=== PATIENT | female | born 1995 | race Caucasian/White ===

== ENCOUNTER → 2022-07-03 | Outpatient (CLI) | payer OTHER ==
--- NOTE | 2022-07-03 11:46 | US ---
EXAMINATION TYPE: Transabdominal DATE OF EXAM: 07/03/2022 9:33 AM COMPARISON: NONE CLINICAL HISTORY: Z36.89 Encounter for other specified . Confirm dates EXAM PERFORMED: Transabdominal (TA) EXAM MEASUREMENTS: GESTATIONAL AGE / DATING Physician Established: (13 weeks/0 days) EDC: 01/08/2023 Dates by LMP: LMP unknown Dates by First Scan: No previous this is first scan Dates by Current Scan for: (12 weeks/1 days) EDC: 01/14/2023 MATERNAL ANATOMY Uterus: 17.4 x 6.1 x 10.4cm Right Ovary: not seen Left Ovary: not seen Post CDS / Adnexa: wnl Presence of free fluid: no Presence of corpus luteal cyst: not seen Presence of subchorionic bleed: no GESTATION / SURVEY CRL: 5.5cm (12 weeks/1 days) Yolk Sac (normal less than 6mm): 4.5mm Heart Rate: 154 bpm Rhythm: Normal IUP: Viable IUP Date of LMP: Unknown IMPRESSION: Viable single intrauterine with ultrasound age of 12 weeks 1 day by crown-rump length.
== END | disposition home or self-care (01) ==
LOC: RADUSWWP 09:06
PROVIDERS: ATTEND Obstetrics & Gynecology
DX: Z36.89 Encounter for other specified antenatal screening (principal); Z3A.12 12 weeks gestation of pregnancy
CPT/HCPCS: 76801

== ENCOUNTER → 2022-10-16 | Outpatient (CLI) | payer OTHER ==
[2022-10-16 17:46] LABS: HCT 32.2 % (37.2-46.3); MCH 31.5 pg (27.0-32.0); MCHC 34.2 g/dL (32.0-37.0); MCV 92.3 fL (80.0-97.0); Mean Platelet Volume 9.8 fL (9.5-12.2); NRBC Per 100 WBC 0 /100 WBCS (0.0-0.0); Platelet Count 165 X 10*3/uL (140-440); RBC 3.49 X 10*6/uL (4.10-5.20); WBC 8.08 X 10*3/uL (4.50-10.00)
== END | disposition home or self-care (01) ==
LOC: LABWHC1 10:06
PROVIDERS: ATTEND Obstetrics & Gynecology
DX: Z34.82 Encounter for supervision of other normal pregnancy, second trimester (principal); Z3A.00 Weeks of gestation of pregnancy not specified
CPT/HCPCS: 36415; 82950; 85027

== ENCOUNTER 2023-01-02 11:56 | Inpatient (IN) | payer OTHER ==
[2023-01-02] MEDS ORDERED: CITRIC ACID-SODIUM CITRATE 15 ML CUP PO ONE (12:35)
[2023-01-02] MEDS ORDERED: LACTATED RINGERS 1,000 ML IV ONE (12:35)
--- NOTE | 2023-01-02 12:43 | P.HPOB ---
History of Present Illness H&P Date: 01/02/23 Chief Complaint: Contractions, previous This patient is a pleasant 27-year-old 5 para 2 female estimated date of confinement 01/14/2023 estimated gestational age 38-2/7 weeks who presents to labor and delivery with complaints of increased contractions. Patient's care has been uncomplicated. She's had 2 previous sections and scheduled for repeat next week. Patient's having contractions yesterday may become much more painful today. Patient's felt to be in early labor. Review of Systems Genitourinary: Reports Menstruation: Reports amenorrhea Past Medical History Past Medical History: No Reported History History of Any Multi-Drug Resistant Organisms: None Reported Past Surgical History: Section Past Anesthesia/Blood Transfusion Reactions: No Reported Reaction Past Psychological History: No Psychological Hx Reported Smoking Status: Former smoker Past Alcohol Use History: None Reported, Occasional Past Drug Use History: None Reported Medications and Allergies Home Medications Medication Instructions Recorded Confirmed Type No Known Home Medications 01/23/15 01/23/15 History Allergies Allergy/AdvReac Type Severity Reaction Status Date / Time No Known Allergies Allergy Verified 01/23/15 16:40 Exam - OBG Physical Exam Abdomen: bowel sounds normal, no diffuse tenderness, no bruit present, no guarding noted, no hepatomegaly, no splenomegaly, no mass Vulva: both: normal Vagina: normal moisture, no discharge Cervix: no lesion (Cervix is closed), no discharge Results labs show she is A positive, rubella immune, RPR nonreactive, hepatitis B and C are negative, HIV is nonreactive, ultrasounds of shown normal anatomy. Group B strep was negative. Glucola was 95. Assessment and Plan Assessment: This is a pleasant 27-year-old 5 para 2 female estimated gestational age 38-2/7 weeks who presents to labor and delivery complaints of regular painful contractions found to be in early labor. Patient's had 2 previous sections. Patient did eat a peanut butter sandwich approximately 2 hours ago. heart tones are category 1. Plan at this time is to proceed with a section later today after her food has digested, unless there are heart tone abnormalities then we will proceed with delivery immediately. Patient I discussed the surgery and risks and risks of infection, bleeding, possible injury to bowel, bladder, vessels, and/or other organs. All the patient's questions are answered and a written consent is obtained. (1) 38 weeks gestation of Current Visit: Yes Status: Acute Code(s): Z3A.38 - 38 WEEKS GESTATION OF SNOMED Code(s): 46616072 (2) Previous delivery affecting Current Visit: Yes Status: Acute Code(s): O34.219 - MATERNAL CARE FOR UNSP TYPE SCAR FROM PREVIOUS DEL SNOMED Code(s): 204220265 (3) Normal labor Current Visit: Yes Status: Acute Code(s): O80 - ENCOUNTER FOR FULL-TERM UNCOMPLICATED DELIVERY; Z37.9 - OUTCOME OF DELIVERY, UNSPECIFIED SNOMED Code(s): 85170882
[2023-01-02] MEDS ORDERED: BUTORPHANOL 1 MG/ML 1 ML VIAL IV PRN (12:44)
[2023-01-02 14:57] LABS: Basophils % (A) 0 %; Eosinophils % (A) 0 %; HCT 33.7 % (34.0-46.0); HGB 11.5 gm/dL (11.4-16.0); Lymphocytes # (A) 1.6 k/uL (1.0-4.8); Lymphocytes % (A) 16 %; MCH 31.2 pg (25.0-35.0); MCHC 34.2 g/dL (31.0-37.0); MCV 91.4 fL (80.0-100.0); Monocytes # (A) 0.4 k/uL (0-1.0); Monocytes % (A) 4 %; Neutrophils # (A) 7.6 k/uL (1.3-7.7); Neutrophils % (A) 78 %; Platelet Count 143 k/uL (150-450); Poikilocytosis Slight; RBC 3.69 m/uL (3.80-5.40); WBC 9.8 k/uL (3.8-10.6)
[2023-01-02] MEDS ORDERED: METOCLOPRAMIDE 5 MG/ML 2 ML VIAL ONE (17:50)
[2023-01-02] MEDS ORDERED: ONDANSETRON 4 MG/2 ML VIAL ONE (17:50)
[2023-01-02] MEDS ORDERED: NALBUPHINE 10 MG/ML (1 ML AMP) ONE (17:50)
[2023-01-02] MEDS ORDERED: MORPHINE SULFATE (PF) 0.3 MG/0.3 ML SYR ONE (17:50)
[2023-01-02] MEDS ORDERED: KETOROLAC 15 MG/ML 1 ML VIAL ONE (17:50)
[2023-01-02] MEDS ORDERED: ePHEDrine 50 MG/ML 1 ML VIAL ONE (17:50)
[2023-01-02] MEDS ORDERED: OXYTOCIN 30 UNITS/500 ML NS BAG IV ONE (17:50)
[2023-01-02] MEDS ORDERED: ZOLPIDEM 5 MG TAB PO PRN (18:38)
[2023-01-02] MEDS ORDERED: ONDANSETRON 4 MG/2 ML VIAL IVP PRN (18:38)
[2023-01-02] MEDS ORDERED: NALOXONE 0.4 MG/ML 1 ML VIAL IV PRN ×2 (18:38→20:13)
[2023-01-02] MEDS ORDERED: LANOLIN CREAM 5 GM TUBE TOPICAL PRN (18:38)
[2023-01-02] MEDS ORDERED: diphenhydrAMINE 25 MG CAP PO PRN (18:38)
[2023-01-02] MEDS ORDERED: diphenhydrAMINE 50 MG/ML 1 ML VIAL IVP PRN (18:38)
[2023-01-02] MEDS ORDERED: OXYTOCIN 30 UNITS/500 ML NS 30 UNIT in SALINE 1 500ML.BAG IV SCH (18:45)
--- NOTE | 2023-01-02 18:50 | P.OP ---
Date of Procedure: 01/02/23 Preoperative Diagnosis: #1: 38-2/7 week intrauterine . #2: Previous section 2. #3: Early labor. Postoperative Diagnosis: Same Procedure(s) Performed: Repeat low transverse section Anesthesia: spinal Surgeon: Nba Dodge Whiskey Filterer #1: Emilia Holguin Estimated Blood Loss (ml): 400 Pathology: none sent Condition: stable Disposition: floor Indications for Procedure: Please see dictated H&P for intimate details of this patient's admission. In brief summary this is a pleasant 27-year-old 5 para 2 female estimated gestational age 38-2/7 weeks who presents to labor and delivery with complaints of painful contractions is started yesterday become more painful throughout the day. Patient was not dilated was found having regular painful contractions requiring IV pain medications therefore thought to be in active labor. Patient's had a previous section 2 and request repeat. Patient does understand the surgery and risks and risks of infection, bleeding, possible injury bowel, bladder, vessels, and/or other organs. All the patient's questions are answered and a written consent is obtained. Operative Findings: This was a vigorous viable female infant Apgars 9 and 9 delivery time is 1809 hrs. The patient's uterus tubes and ovaries appear grossly normal. Description of Procedure: This patient has a Cowart catheter placed to straight drain. She is subsequently taken to the operating room where she sat up and spinal anesthetic is administered without incident. With an adequate level of anesthesia she has abdominal prep and drape. Scalpels and taken the previous Pfannenstiel incision is incised. A second scalpel is taken down the fascia the fascia scored with a knife. Fascial incision extended bilaterally using the Resendiz scissors. Fascia is then dissected off the rectus muscles sharply. Rectus muscles are and the peritoneum was identified and entered sharply. Peritoneal incision extended superior and inferior without difficulty. Bladder blade is then placed. Bladder peritoneum was taken sharply off the lower uterine segment. Scalpels and taken and a low transverse uterine incision is made. Using a hemostat I into the uterine cavity bluntly and there is loss of clear fluid. This incision is then extended bluntly. 's head is then guided through the incision with fundal pressure delivered. Mouth and nares are bulb suctioned. There is no evidence of nuchal cord. With more fundal pressure with delivery the rest of this 's body. This is a vigorous viable female Apgars are 9 and 9 delivery time is 1809 hrs. After delivery of the the umbilical cord is doubly clamped and cut and appears to be trivascular. The placenta is then manually extracted intact. Uterus is then externalized uterine incision demarcated with Price clamps. Uterine incision is then closed using 0 Vicryl running fashion 2 layers. Excellent hemostasis is noted excess fluid is removed from the abdomen and pelvis. Uterus is placed back into the abdomen. The parietal peritoneum was then closed using 0 Vicryl running fashion. Rectus muscles reapproximated in 0 Vicryl interrupted fashion. Fascial incision is then intact and hemostatic. Skin is and closed using larisa. All counts are correct 3. There are no complications. Infant and mother are taken to the birthing suite in satisfactory condition.
[2023-01-02] MEDS: LACTATED RINGERS 1,000 ML IV SCH ×3 (20:00→20:32)
[2023-01-02] MEDS: SENNOSIDES-DOCUSATE SODIUM 1 EACH TAB PO SCH (20:01)
[2023-01-02] MEDS ORDERED: MORPHINE SULFATE 2 MG/ML SYRINGE IVP PRN (20:13)
[2023-01-02] MEDS: METOCLOPRAMIDE 5 MG/ML 2 ML VIAL IVP PRN (20:31)
[2023-01-02] MEDS: KETOROLAC 15 MG/ML 1 ML VIAL IVP SCH (21:22)
[2023-01-02] MEDS: ACETAMINOPHEN TAB 500 MG TAB PO SCH (22:21)
[2023-01-03] MEDS: IBUPROFEN 600 MG TAB PO SCH ×3 (02:18→18:04)
[2023-01-03] MEDS: KETOROLAC 15 MG/ML 1 ML VIAL IVP SCH ×2 (04:01→12:34)
[2023-01-03] MEDS: LACTATED RINGERS 1,000 ML IV SCH ×2 (04:36→04:37)
[2023-01-03] MEDS: ACETAMINOPHEN TAB 500 MG TAB PO SCH ×3 (04:36→21:53)
[2023-01-03 07:24] LABS: Basophils % (A) 0 %; Eosinophils % (A) 0 %; HCT 28.8 % (34.0-46.0); HGB 10.1 gm/dL (11.4-16.0); Lymphocytes # (A) 0.9 k/uL (1.0-4.8); Lymphocytes % (A) 9 %; MCH 31.8 pg (25.0-35.0); MCHC 35.1 g/dL (31.0-37.0); MCV 90.8 fL (80.0-100.0); Mean Platelet Volume 8.5; Monocytes # (A) 0.5 k/uL (0-1.0); Monocytes % (A) 5 %; Neutrophils # (A) 8.5 k/uL (1.3-7.7); Neutrophils % (A) 85 %; Platelet Count 115 k/uL (150-450); Poikilocytosis Slight; RBC 3.17 m/uL (3.80-5.40); RDW 13.8 % (11.5-15.5)
[2023-01-03] MEDS: METOCLOPRAMIDE 5 MG/ML 2 ML VIAL IVP PRN (08:20)
--- NOTE | 2023-01-03 08:25 | P.PN ---
Progress Note - Text Progress Note Date: 01/03/23 Postop day 1 from under spinal anesthesia with intrathecal morphine given for postop pain management. Patient is doing well. Pain is well controlled. On visual analog scale 2/10 Mild itching present some nausea reported. Received some antiemetics. No Headache or weakness and numbness in the legs. No complications from spinal anesthesia.
[2023-01-03 08:31] VITALS: RESP 16
[2023-01-03] MEDS: SENNOSIDES-DOCUSATE SODIUM 1 EACH TAB PO SCH ×3 (21:53→21:54)
[2023-01-04] MEDS: IBUPROFEN 600 MG TAB PO SCH ×4 (00:35→19:14)
[2023-01-04] MEDS: KETOROLAC 15 MG/ML 1 ML VIAL IVP SCH ×2 (03:15→03:16)
[2023-01-04] MEDS: ACETAMINOPHEN TAB 500 MG TAB PO SCH ×3 (04:01→18:07)
[2023-01-04 06:00] LABS: Basophils % (A) 1 %; Eosinophils # (A) 0.1 k/uL (0-0.7); Eosinophils % (A) 1 %; HCT 27.2 % (34.0-46.0); HGB 9.4 gm/dL (11.4-16.0); Lymphocytes # (A) 1.6 k/uL (1.0-4.8); Lymphocytes % (A) 20 %; MCH 31.4 pg (25.0-35.0); MCHC 34.6 g/dL (31.0-37.0); MCV 90.9 fL (80.0-100.0); Mean Platelet Volume 8.4; Monocytes # (A) 0.4 k/uL (0-1.0); Monocytes % (A) 5 %; Neutrophils # (A) 5.8 k/uL (1.3-7.7); Neutrophils % (A) 71 %; Platelet Count 133 k/uL (150-450); Poikilocytosis Slight; RBC 2.99 m/uL (3.80-5.40); RDW 14.5 % (11.5-15.5); WBC 8.1 k/uL (3.8-10.6)
--- NOTE | 2023-01-04 09:34 | P.PNOBGPC ---
Subjective - Subjective Principal diagnosis: Status post repeat low transverse postop day 1 Interval history: Patient seen and examined. Denies nausea, vomiting, chest pain, shortness of breath or any calf pain. Patient reports: Reports appetite normal, Reports voiding normally, Reports pain well controlled, Reports ambulating normally Leslie: doing well Objective - Vital Signs Latest vital signs: Vital Signs Temp Pulse Resp BP Pulse Ox 01/04/23 08:00 98.3 F 72 16 107/67 98 01/04/23 00:00 98.5 F 67 16 110/68 97 01/03/23 16:00 98.8 F 103 H 16 121/71 01/03/23 12:51 98.2 F 74 16 110/62 Intake and Output 01/03/23 01/04/23 01/04/23 22:59 06:59 14:59 Intake Total 480 Output Total 600 Balance -120 Intake: Oral 480 Output: Urine 600 Other: # Voids 2 1 - Exam Lungs: bilateral: normal Chest: Normal S1, Normal S2 Extremities: Present: normal Abdomen: Present: normal appearance, soft. Absent: distention, tenderness Incision: Present: normal, dry, intact Uterus: Present: normal, firm - Labs Labs: Abnormal Lab Results - Last 24 Hours (Table) 01/04/23 Range/Units 05:03 RBC 2.99 L (3.80-5.40) m/uL Hgb 9.4 L (11.4-16.0) gm/dL Hct 27.2 L (34.0-46.0) % Plt Count 133 L (150-450) k/uL Assessment and Plan (1) Status post repeat low transverse section Current Visit: Yes Status: Acute Code(s): Z98.891 - HISTORY OF UTERINE SCAR FROM PREVIOUS SURGERY SNOMED Code(s): 886059534 Plan: 1. Increase ambulation 2. Regular diet 3. By mouth pain meds
[2023-01-04] MEDS: SENNOSIDES-DOCUSATE SODIUM 1 EACH TAB PO SCH (19:45)
[2023-01-05] MEDS: IBUPROFEN 600 MG TAB PO SCH ×2 (01:23→07:47)
[2023-01-05] MEDS: SIMETHICONE 80 MG CHEWABLE PO PRN ×3 (04:12→12:47)
[2023-01-05] MEDS: LACTATED RINGERS 1,000 ML IV SCH (05:32)
[2023-01-05] MEDS: KETOROLAC 15 MG/ML 1 ML VIAL IVP SCH (05:32)
[2023-01-05] MEDS: ACETAMINOPHEN TAB 500 MG TAB PO SCH ×2 (06:54)
[2023-01-05] MEDS: SENNOSIDES-DOCUSATE SODIUM 1 EACH TAB PO SCH (07:47)
--- NOTE | 2023-01-05 08:12 | P.DS ---
Providers Date of admission: 01/02/23 12:32 Expected date of discharge: 01/05/23 Attending physician: Nba Dodge Primary care physician: Stated None - Discharge Diagnosis(es) (1) Status post repeat low transverse section Current Visit: Yes Status: Acute Hospital Course: Patient presented in early labor and had had a previous section. She underwent a repeat low transverse . Postoperative course was uncomplicated. She denies nausea, vomiting, chest pain, shortness of breath or calf pain. Patient will be discharged home day #2 in stable condition to follow-up with Dr. Dodge in one week. Plan - Discharge Summary New Discharge Prescriptions: New Ibuprofen [Motrin] 600 mg PO Q6H #30 tab oxyCODONE HCL [OxyIR] 5 mg PO Q4HR PRN #18 tab PRN Reason: Pain Scale 4 - 6 Discharge Medication List Ibuprofen [Motrin] 600 mg PO Q6H #30 tab 01/03/23 [Rx] oxyCODONE HCL [OxyIR] 5 mg PO Q4HR PRN #18 tab 01/03/23 [Rx] Follow up Appointment(s)/Referral(s): Nba Dodge MD [STAFF PHYSICIAN] - 02/14/23 9:00 am (Post Op Appoointment 01-10-2023 at 9:15) Patient Instructions/Handouts: (DC) Activity/Diet/Wound Care/Special Instructions: No heavy lifting or strenuous activity for 6 weeks. No intercourse or anything per vagina for 6 weeks. Please call if any fever, chills, excessive vaginal bleeding, and/or abdominal pain Discharge Disposition: HOME SELF-CARE
[2023-01-05 10:05] VITALS: BP 115/75; PULSE 49; TEMP 98.3
== END 2023-01-05 13:28 | disposition home or self-care (01) | DRG 540 ==
LOC: FBPOP 11:56 → 4FBP 12:32
PROVIDERS: ADMIT Obstetrics & Gynecology; ATTEND Obstetrics & Gynecology
PROC: 10D00Z1 Extraction of Products of Conception, Low, Open Approach (ICD-10-PCS; principal; 2023-01-02 18:00)
DX: O34.211 Maternal care for low transverse scar from previous cesarean delivery (principal); Z87.891 Personal history of nicotine dependence; Z28.310 Unvaccinated for COVID-19; Z3A.38 38 weeks gestation of pregnancy; Z37.0 Single live birth
CPT/HCPCS: 85025; 86850; 86900; 86901